=== PATIENT | male | born 1995 | race Two or more races ===

== ENCOUNTER 2022-07-31 06:06 | Emergency (ER) | payer MEDICAID ==
[~2022-07-31] VITALS: Ht 167.6 cm; Wt 72.0 kg
[2022-07-31] MEDS ORDERED: KETOROLAC TROMETH 60MG/2ML VIAL IV ONE (08:45)
[2022-07-31] MEDS ORDERED: LACTATED RINGER'S 1,000 ML IV ONE (08:45)
[2022-07-31] MEDS ORDERED: ONDANSETRON HCL 4 MG/2 ML VIAL IV ONE (08:45)
[2022-07-31 09:30] LABS: Basophils # (auto) 0 10 ^3/uL (0-0.2); Basophils % (auto) 0.3 % (0.0-2.0); Eosinophils # (auto) 0 10 ^3/uL (0-0.8); Eosinophils % (auto) 0.2 % (0.0-7.0); Hematocrit 46.1 % (41.0-53.0); Hemoglobin 15.4 g/dL (13.5-17.5); Lymphocytes # (auto) 1.6 10 ^3/uL (0.4-5.4); Lymphocytes % (auto) 11.4 % (10.0-50.0); Mean Corpuscular Hemoglobin 29.3 pg (28.0-32.0); Mean Corpuscular Hgb Conc. 33.5 g/dL (32.0-36.0); Mean Corpuscular Volume 87.3 fL (80.0-100.0); Monocytes # (auto) 0.9 10 ^3/uL (0-1.3); Monocytes % (auto) 6.8 % (0.0-12.0); Neutrophils # (auto) 11.2 10 ^3/uL (1.6-8.6); Neutrophils % (auto) 81.3 % (37.0-80.0); Red Blood Cells 5.27 10^6/uL (4.5-5.90); Red Cell Distribution Width 12.9 % (11.8-14.3); White Blood Cell 13.8 10^3/uL (4.4-10.8)
[2022-07-31 09:47] LABS: Albumin 4.1 g/dL (3.4-5.0); Calcium 9.3 mg/dL (8.5-10.1); Magnesium 2.3 mg/dL (1.6-2.6)
[2022-07-31 09:49] LABS: INR 0.96 (0.9-1.15); Partial Thromboplastin Time 30.4 sec (24.6-33.4)
[2022-07-31 09:50] LABS: BUN/Creatinine Ratio 17.2; Bilirubin, Total 0.4 mg/dL (0.2-1.0)
[2022-07-31] MEDS ORDERED: MORPHINE SULFATE 4 MG/ML SYR/VIAL IV SCH (10:00)
[2022-07-31] MEDS ORDERED: IOHEXOL 300 MG/ML 100ML BOTTLE IJ ONE (10:06)
[2022-07-31 11:53] LABS: Urine Bacteria NONE SEEN /hpf (None Seen); Urine Blood Negative /uL (Negative); Urine Specific Gravity 1.043 (1.001-1.035); Urine WBC <1 /hpf (0 - 3)
[2022-07-31] MEDS ORDERED: MAA30LQ GT (12:30)
[2022-07-31] MEDS ORDERED: FAMO20TA10 PO (12:30)
[2022-07-31] MEDS ORDERED: ONDA-155 PO (12:30)
[2022-07-31] MEDS ORDERED: LACT10SO70 PO (12:30)
[2022-07-31 12:47] VITALS: BP 124/75
== END 2022-07-31 12:47 | disposition home or self-care (01) ==
LOC: ER 06:06
DX: K59.00 Constipation, unspecified (principal); R11.10 Vomiting, unspecified; F17.210 Nicotine dependence, cigarettes, uncomplicated; Z20.822 Contact with and (suspected) exposure to COVID-19
CPT/HCPCS: 36415; 36600; 71046; 74177; 80053; 81001; 82805; 83605; 83690; 83735; 85025; 85610; 85730; 87040; 87086; 87426; 96361; 96374; 96375; 99285; J1885; J2405; J7030; Q9967

== ENCOUNTER 2024-06-24 21:37 | Emergency (ER) | payer MEDICAID, OTHER ==
[~2024-06-24] VITALS: Ht 162.6 cm; Wt 68.1 kg
[~2024-06-24 21:37] MED LIST: FAMO20TA10 PO; LACT10SO70 PO; MAA30LQ GT; ONDA-155 PO
[2024-06-24] MEDS: SODIUM CHLORIDE 0.9% 1,000 ML IV ONE (22:00)
[2024-06-24 22:15] LABS: Basophils # (auto) 0 10 ^3/uL (0-0.2); Basophils % (auto) 0.3 % (0.0-2.0); Eosinophils # (auto) 0 10 ^3/uL (0-0.8); Eosinophils % (auto) 0.1 % (0.0-7.0); Hematocrit 44.7 % (41.0-53.0); Hemoglobin 15.1 g/dL (13.5-17.5); Lymphocytes # (auto) 2.2 10 ^3/uL (0.4-5.4); Mean Corpuscular Hemoglobin 29.7 pg (28.0-32.0); Mean Corpuscular Hgb Conc. 33.8 g/dL (32.0-36.0); Mean Corpuscular Volume 87.9 fL (80.0-100.0); Monocytes # (auto) 0.8 10 ^3/uL (0-1.3); Neutrophils # (auto) 10.5 10 ^3/uL (1.6-8.6); Neutrophils % (auto) 77.6 % (37.0-80.0); Platelet Count (auto) 392 10^3/uL (140-450); Red Blood Cells 5.09 10^6/uL (4.5-5.90); White Blood Cell 13.6 10^3/uL (4.4-10.8)
[2024-06-24 22:31] LABS: Alanine Aminotransferase 23 U/L (7-40); Albumin 4.7 g/dL (3.2-4.8); Alkaline Phosphatase 83 U/L (46-116); Anion Gap 6 (5-15); Aspartate Aminotransferase 23 U/L (13-40); BUN/Creatinine Ratio 11.1 (10.0-20.0); Blood Urea Nitrogen 12 mg/dL (9-23); Calcium 10.1 mg/dL (8.7-10.4); Carbon Dioxide 26 mmol/L (20-30); Chloride 106 mmol/L (98-107); Glucose 130 mg/dL (74-106); Magnesium 2.2 mg/dL (1.6-2.6); Potassium 3.4 mmol/L (3.5-5.1); Sodium 138 mmol/L (136-145)
[2024-06-24 22:32] LABS: Bilirubin, Total 0.8 mg/dL (0.2-1.0); Total Protein 7.5 g/dL (5.7-8.2)
[2024-06-24 22:37] LABS: INR 1.08 (0.9-1.15); Partial Thromboplastin Time 27.3 SEC (24.5-34.5); Prothrombin Time 11.4 sec (9.3-11.8)
[2024-06-24] MEDS ORDERED: AMOX500T3 PO (23:19)
[2024-06-24] MEDS: LORazepam 0.5 MG TAB PO ONE (23:32)
[2024-06-24] MEDS: ASPirin 325 MG TAB PO ONE (23:33)
[2024-06-24 23:52] VITALS: BP 136/91; PULSE 102; RESP 17; TEMP 99; O2SAT 98
== END 2024-06-25 03:19 | disposition home or self-care (01) ==
LOC: ER 21:37
DX: J40 Bronchitis, not specified as acute or chronic (principal); F14.10 Cocaine abuse, uncomplicated; F17.210 Nicotine dependence, cigarettes, uncomplicated; Z79.899 Other long term (current) drug therapy
CPT/HCPCS: 36415; 71045; 80053; 83735; 83880; 84484; 85025; 85379; 85610; 85730; 93005; 96360; 99285; J7030

== ENCOUNTER 2024-08-21 08:39 | Emergency (ER) | payer OTHER ==
[~2024-08-21] VITALS: Ht 170.2 cm; Wt 79.0 kg
[~2024-08-21 08:39] MED LIST changes: +AMOX500T3 PO
[2024-08-21 09:23] LABS: Basophils # (auto) 0.1 10 ^3/uL (0-0.2); Basophils % (auto) 0.8 % (0.0-2.0); Eosinophils # (auto) 0.2 10 ^3/uL (0-0.8); Eosinophils % (auto) 3.3 % (0.0-7.0); Hematocrit 43.6 % (41.0-53.0); Hemoglobin 15.1 g/dL (13.5-17.5); Lymphocytes # (auto) 2.9 10 ^3/uL (0.4-5.4); Lymphocytes % (auto) 39.3 % (10.0-50.0); Mean Corpuscular Hemoglobin 30.7 pg (28.0-32.0); Mean Corpuscular Hgb Conc. 34.7 g/dL (32.0-36.0); Mean Corpuscular Volume 88.5 fL (80.0-100.0); Monocytes % (auto) 13.2 % (0.0-12.0); Neutrophils # (auto) 3.2 10 ^3/uL (1.6-8.6); Neutrophils % (auto) 43.4 % (37.0-80.0); Nucleated Red Blood Cells % 0.1 %; Platelet Count (auto) 290 10^3/uL (140-450); Red Blood Cells 4.92 10^6/uL (4.5-5.90); Red Cell Distribution Width 13.2 % (11.8-14.3); White Blood Cell 7.5 10^3/uL (4.4-10.8)
[2024-08-21 09:43] VITALS: TEMP 97.5
[2024-08-21 09:47] LABS: Alanine Aminotransferase 23 U/L (7-40); Albumin 4.5 g/dL (3.2-4.8); Alkaline Phosphatase 84 U/L (46-116); Anion Gap 5 (5-15); Aspartate Aminotransferase 17 U/L (13-40); Bilirubin, Total 0.8 mg/dL (0.2-1.0); Blood Urea Nitrogen 12 mg/dL (9-23); Calcium 9.8 mg/dL (8.7-10.4); Carbon Dioxide 27 mmol/L (20-31); Chloride 105 mmol/L (98-107); Glucose 91 mg/dL (74-106); Potassium 4.1 mmol/L (3.5-5.1); Sodium 137 mmol/L (136-145); Total Protein 7.4 g/dL (5.7-8.2)
[2024-08-21 09:49] VITALS: PULSE 53; RESP 20; O2SAT 100
[2024-08-21] MEDS: IOHEXOL 300 MG/ML 100ML BOTTLE IJ ONE (10:00)
[2024-08-21 10:45] LABS: Lipase 31 U/L (12-53)
[2024-08-21 12:07] VITALS: BP 115/74; PULSE 49; RESP 16; O2SAT 100
== END 2024-08-21 12:13 | disposition home or self-care (01) ==
LOC: ER 08:39
DX: R10.33 Periumbilical pain (principal); K76.89 Other specified diseases of liver; F17.210 Nicotine dependence, cigarettes, uncomplicated; Z79.899 Other long term (current) drug therapy
CPT/HCPCS: 36415; 74177; 80053; 83690; 85025; 99285; Q9967

== ENCOUNTER 2025-09-28 01:15 | Emergency (ER) | payer OTHER ==
[~2025-09-28] VITALS: Ht 172.7 cm; Wt 77.2 kg
[2025-09-28] MEDS ORDERED: AUG875T PO (02:56)
--- NOTE | 2025-09-28 02:56 | ED.PDOC ---
Eye-HPI HPI Comments PT CAME TO THE ER WITH CC OF SORE THROAT WITH ASSOCIATED CONGESTION, RUNNY NOSE (GREEN SNOT), SOB, COUGH PT IS A&OX4 RR EVEN AND REGULAR NO DISTRESS NOTED AT THIS TIME. PT DENIES ALL OTHER SYMTOMS AT THIS TIME Chief Complaint: Sore Throat Time Seen by MD: 01:42 Primary Care Provider: MICHELLE Reviewed Notes: Nurses Notes, Medications, Allergies Allergies: Coded Allergies: NO KNOWN ALLERGIES (Unverified , 10/14/12) Home Meds Active Scripts Amoxicillin & Pot Clavulanate (AUGMENTIN TABLET) 875 Mg Tb, 875 MG PO BID for 7 Days, #14 TAB Prov:NAHEED DE LA FUENTE 09/28/25 Amoxicillin Trihydrate (Amoxicillin) 500 Mg Tab, 1 TAB PO TID for 5 Days, #15 TAB Prov:SABRINA DECKER MD 06/24/24 Ondansetron HCl (Ondansetron) 4 Mg Tab, 4 MG PO tidpr, #12 TAB Prov:BRANDIN BRITO MD 07/31/22 Lactulose (Lactulose) 10 Gm/15 Ml Jeri, 10 GM PO BID, #300 ML Prov:BRANDIN BRITO MD 07/31/22 Famotidine (PEPCID TABLET) 20 Mg Tb, 1 TAB PO BID, #60 TAB 5 Refills Prov:BRANDIN BRITO MD 07/31/22 Alum & Mag Hydrox-Simethicone (Maalox Plus) 30 Ml Ss, 30 ML GT Q6HR, #355 ML Prov:BRANDIN BRITO MD 07/31/22 Information Source: Patient Mode of Arrival: Ambulatory Past Medical History PAST MEDICAL HISTORY: Denies Surgical History: Denies all surgeries Family History Family History: Unobtainable Social History Smoker: Cigarettes Alcohol: Rarely Drugs: Other Lives In: Home All Other Systems: Reviewed and Negative (see hpi) Physical Exam General Appearance: No Apparent Distress, Normal HEENT: Pharyngeal Erythema, TMs Normal, Other (Tonsils grade 4 without exudate) Neck: Full Range of Motion, Non-Tender Respiratory: Chest Non-Tender, Lungs Clear, No Respiratory Distress, Normal Breath Sounds Cardiovascular: No Edema, No JVD, No Murmur, No Gallop, Normal Peripheral Pulses, Regular Rate/Rhythm Breast Exam: Deferred Gastrointestinal: No Organomegaly, Non Tender, No Pulsatile Mass, Normal Bowel Sounds, Soft Genitalia: Deferred Pelvic: Deferred Rectal: Deferred Extremities: Normal capillary refill, Normal range of motion Musculoskeletal : Apperance: Normal Neurologic: Alert, No Motor Deficits, Normal Affect, Normal Mood, No Sensory Deficits Cerebellar Function: Normal Reflexes: NOT DONE Skin: Dry, Normal Color, Warm Lymphatic: No Adenopathy Was a procedure done? Was a procedure done?: No EENT DIFF Eye: N/A Ear: Otitis Media, Perforation, Dental, Pharyngitis Sore Throat: Streptococcal, Viral Pharyngitis, URI X-Ray, Labs, Meds, VS Vital Signs Date Time Temp Pulse Resp B/P (MAP) Pulse Ox O2 Delivery O2 Flow Rate FiO2 09/28/25 03:04 97.9 87 17 111/76 (88) 95 97.9 09/28/25 03:04 87 17 95 Room Air 09/28/25 01:34 97.9 96 20 122/89 98 97.9 Current Medications Medications (Trade) Dose Ordered Sig/Sanket Route Start Time Stop Time Status Last Admin Dexamethasone Sodium Phosphate (Decadron Injection) 10 mg ONCE ONCE IM 09/28/25 03:00 09/28/25 03:01 DC 09/28/25 03:04 Time of 1ST Reevaluation: 01:42 Reevaluation 1ST: Unchanged Time of 2ND Reevaluation: 02:55 Reevaluation 2ND: Improved Patient Education/Counseling: Diagnosis, Treatment, Need For Follow Up Family Education/Counseling: No Family Present SEPSIS Sepsis Screen Date sepsis recognized/suspect: Sep 28, 2025 Time Sepsis recognized/suspect: 0140 Recent Procedure: Yes (T) On Antibiotic Therapy: No Respiratory Rate >20: No Heart Rate >90: No Temp<36 C (96.8 F) or >38.3 C: No SBP <90 or MAP <65 mmHG: No New Acute Mental Status Change: No Is the patient on CPAP, BIPAP,: No Vital Signs Date Time Temp Pulse Resp B/P (MAP) Pulse Ox O2 Delivery O2 Flow Rate FiO2 09/28/25 03:04 97.9 87 17 111/76 (88) 95 97.9 09/28/25 03:04 87 17 95 Room Air 09/28/25 01:34 97.9 96 20 122/89 98 97.9 Medications Medications Dose Ordered Sig/Sanket Route Start Time Stop Time Status Last Admin Dose Admin Dexamethasone Sodium Phosphate 10 mg ONCE ONCE IM 09/28/25 03:00 09/28/25 03:01 DC 09/28/25 03:04 Departure 1 Departure Time of Disposition: 02:55 Impression: Primary Impression: Acute tonsillitis Qualified Codes: J03.90 - Acute tonsillitis, unspecified Disposition: HOME / SELF CARE / HOMELESS Condition: Stable e-Prescriptions Amoxicillin & Pot Clavulanate (AUGMENTIN TABLET) 875 Mg Tb 875 MG PO BID for 7 Days, #14 TAB Prov: NAHEED DE LA FUENTE 09/28/25 Discharged With: Significant Other Critical Care Note Critical Care Time?: No Stability Stability form required: NAHEED Worthy Sep 28, 2025 02:56
[2025-09-28 03:04] VITALS: BP 111/76; PULSE 87; RESP 17; TEMP 97.9; O2SAT 95
== END 2025-09-28 03:10 | disposition home or self-care (01) ==
LOC: ER 01:15
DX: J03.90 Acute tonsillitis, unspecified (principal); F17.210 Nicotine dependence, cigarettes, uncomplicated; R06.02 Shortness of breath
CPT/HCPCS: 96372; 99283; J1100